=== PATIENT | female | born 1980 | race Caucasian/White ===

== ENCOUNTER 2017-02-12 10:45 | Emergency (ER) | payer OTHER ==
[~2017-02-12] VITALS: Ht 154.9 cm; Wt 75.5 kg
[~2017-02-12 10:45] MED LIST: BEN25 PO; HYDR-3498 PO; PRED20TA PO; TAMS-14 PO
[2017-02-12 10:51] VITALS: Ht 154.9 cm; Wt 75.5 kg
[2017-02-12] MEDS ORDERED: ACETAMINOPHEN 500 MG TAB PO STA (11:08)
--- NOTE | 2017-02-12 11:16 | ERD ---
ER Documentation Chief Complaint Date/Time DATE: 02/12/17 TIME: 11:14 Chief Complaint Pt fever and ST X 2-3 days. HPI 36 year old female comes in with a fever and sore throat for 2-3 days. She states that she is taking DayQuil for her pain. She reports pain in her throat , and pain with swallowing that is achy, but no difficulty handling her secretions. She denies cough, runny nose, vomiting, diarrhea. ROS All systems reviewed and are negative except as per history of present illness. Medications Home Meds Active Scripts Lidocaine (Lidocaine Viscous) 100 Ml Soln, 10 ML MM TID, #100 Prov:EVAN SANTAMARIA PA-C 02/12/17 Amoxicillin* (Amoxicillin*) 500 Mg Cap, 500 MG PO TID for 10 Days, CAP Prov:EVAN SANTAMARIA PA-C 02/12/17 Ibuprofen* (Motrin*) 600 Mg Tab, 600 MG PO Q6, #30 TAB Prov:EVAN SANTAMRAIA PA-C 02/12/17 Diphenhydramine Hcl* (Benadryl*) 25 Mg Cap, 25 MG PO Q6, #15 CAP Prov:ADELSO MATIAS NP 05/29/16 Prednisone* (Prednisone*) 20 Mg Tab, 40 MG PO DAILY for 4 Days, TAB Prov:ADELSO MATIAS NP 05/29/16 Tamsulosin Hcl* (Flomax*) 0.4 Mg Cap.er.24h, 0.4 MG PO QPM, #30 CAP Prov:VEE BAUMAN DO 05/07/15 Hydrocodone Bit-Acetaminophen* ([place]*) 5-325 Mg Tab, 1 TAB PO Q6 Y for PAIN, # 20 TAB Prov:VEE BAUMAN DO 05/07/15 Allergies Allergies: Coded Allergies: No Known Drug Allergy (Verified Allergy, Mild, 05/28/16) PMhx/Soc Medical and Surgical Hx: pt denies Medical Hx, pt denies Surgical Hx History of Surgery: No Anesthesia Reaction: No Hx Neurological Disorder: No Hx Respiratory Disorders: No Hx Cardiac Disorders: No Hx Psychiatric Problems: No Hx Miscellaneous Medical Probl: No Hx Alcohol Use: No Hx Substance Use: No Hx Tobacco Use: No Smoking Status: Never smoker Physical Exam Vitals Vital Signs Date Time Temp Pulse Resp B/P Pulse Ox O2 Delivery O2 Flow Rate FiO2 02/12/17 12:02 102.2 02/12/17 11:28 102.8 02/12/17 10:51 103.2 108 18 151/80 98 Physical Exam General: Well-developed, well-nourished. The patient appears in no acute distress. HEENT: Head is normocephalic, atraumatic. No scleral icterus. TMs normal, There is bilateral tonsillar exudate, uvula midline, no masses. Neck: Supple. Nontender. positive cervical lymphadenopathy at that is tender. Lungs: Clear to auscultation. Normal air movement. Heart: Regular rate and rhythm. S1 and S2 are normal. No murmurs, gallops, or rubs. Abdomen: Nondistended. Extremities: No clubbing or cyanosis. Moving extremities x 4. No weakness. Neurologic: Alert and oriented 3. No focal deficits. Normal speech and gait. Skin: Normal turgor. No rash or lesions. Results 24 hrs Current Medications Medications (Trade) Dose Ordered Sig/Nichole Route PRN Reason Start Time Stop Time Status Last Admin Dose Admin Acetaminophen (Tylenol Tab) 1,000 mg ONCE STAT PO 02/12/17 11:08 02/12/17 11:10 DC 02/12/17 11:17 Ibuprofen (Motrin) 600 mg ONCE ONCE PO 02/12/17 11:30 02/12/17 11:31 DC 02/12/17 11:17 Procedures/MDM Patient was given Tylenol 1 g by mouth, ibuprofen. Medical decision making: This 36-year-old female presents with acute pharyngitis , consistent with likely bacterial infection. She has exudate bilaterally, febrile, positive lymphadenopathy with lack of history of cough and will be treated based on the [facility] criteria. Her airway is clear, there is no abscess seen, she is stable for discharge for outpatient management. Departure Diagnosis: Primary Impression: Acute pharyngitis Condition: EVAN Gutiérrez PA-C Feb 12, 2017 11:16
[2017-02-12] MEDS ORDERED: LIDO20SO19 MM (11:17)
[2017-02-12] MEDS ORDERED: IBUP-1542 PO (11:17)
[2017-02-12] MEDS ORDERED: AMO500 PO (11:17)
[2017-02-12] MEDS ORDERED: IBUPROFEN 600 MG TAB PO ONE (11:30)
[2017-02-12 12:02] VITALS: TEMP 102.2
== END 2017-02-12 12:04 | disposition home or self-care (01) ==
LOC: FTE 10:45
DX: J02.9 Acute pharyngitis, unspecified (principal)
CPT/HCPCS: 99283

== ENCOUNTER 2017-05-14 08:52 | Emergency (ER) | payer MEDICAID, OTHER ==
[~2017-05-14] VITALS: Wt 72.7 kg
[~2017-05-14 08:52] MED LIST changes: +AMOX500C2 PO; +IBUP-1542 PO; +LIDO20SO19 MM
[2017-05-14] MEDS ORDERED: ACETAMINOPHEN 325 MG TAB PO ONE (10:00)
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
[2017-05-14] MEDS ORDERED: ACET500T98 PO (11:31)
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
== END 2017-05-14 11:44 | disposition home or self-care (01) ==
LOC: FTE 08:52
DX: S33.5XXA Sprain of ligaments of lumbar spine, initial encounter (principal); S13.9XXA Sprain of joints and ligaments of unspecified parts of neck, initial encounter; V89.2XXA Person injured in unspecified motor-vehicle accident, traffic, initial encounter
CPT/HCPCS: 72040; 72100; Z7502; Z7610

== ENCOUNTER 2018-04-08 21:44 | Emergency (ER) | END 2018-04-09 02:10 | disposition home or self-care (01) ==